=== PATIENT | male | born 1990 | race Caucasian/White ===

== ENCOUNTER 2023-12-25 10:32 | Emergency (ER) | payer OTHER, SELFPAY ==
--- NOTE | ~2023-12-25 | XR_ITS ---
XR foot LT 2V DATE: 12/25/2023 11:47 INDICATION: Medial foot pain. No injury. TECHNIQUE: AP and lateral views COMPARISON: None FINDINGS: There is slight plantar calcaneal enthesopathy. No fracture, dislocation, periosteal reacti on or bone destruction or other significant bony abnormality is detected. IMPRESSION: Slight plantar calcaneal enthesopathy Reviewed, dictated and finalized at location [facility]
--- NOTE | ~2023-12-25 | XR_ITS ---
XR tibia fibula LT 2V DATE: 12/25/2023 11:47 INDICATION: Medial foot pain, lateral leg pain TECHNIQUE: AP and lateral views COMPARISON: None FINDINGS: No fracture or dislocation, periosteal reaction or bone destruction of the tibia or fibula. Normal alignment and preservation of joint spaces at the knee and ankle joints. IMPRESSION: Negative Reviewed, dictated and finalized at location [facility] IMPRESSION: Negative
[2023-12-25 11:02] VITALS: BP 175/102; PULSE 88; RESP 16; TEMP 36.6; O2SAT 99
--- NOTE | 2023-12-25 11:33 | ED.GENADULT ---
HPI - General Adult General Chief complaint: Extremity Injury, Lower Stated complaint: L ANKLE PAIN X3D Time Seen by Provider: 12/25/23 11:13 Source: patient Mode of arrival: ambulatory Limitations: no limitations History of Present Illness HPI narrative: This is a 33-year-old male who presents to the ED with chief complaint of left lower extremity pain after walking 5 miles a couple of days ago. Denies any injury or swelling. He has concern for stress fracture. Reports pain to the left lateral glued area and left lateral heel and canales. Pain radiates superiorly at times. denies numbness, weakness or any further sites of pain. Review of Systems Review of Systems: All systems as dictated in HPI Exam Narrative: GENERAL: Well-appearing, well-nourished, and in no acute distress. HEAD: Normocephalic, atraumatic. EYES: PERRLA and EOMI. ENT: Nares clear, no rhinorrhea or epistaxis. Mucous membranes moist. Oropharynx without tonsillar hypertrophy exudate or other lesions. NECK: Supple. No adenopathy or masses. CHEST: No respiratory distress. Clear to auscultation. No wheezes rales or rhonchi HEART: Regular rate and rhythm. No murmur heard. Normal peripheral pulses. ABDOMEN: Soft, nontender, nondistended, normal active bowel sounds. MSK: Normal range of motion. No edema. No tenderness or swelling throughout the lower extremities. SKIN: Warm, dry, no rash. No bruising. Neurovascularly intact distally. NEURO: Alert and oriented x3. No focal deficits. PSYCH: Normal mood and affect. Course Vital Signs Vital signs: Vital Signs Temperature 97.9 F 12/25/23 11:02 Pulse Rate 88 12/25/23 11:02 Respiratory Rate 16 12/25/23 11:02 Blood Pressure 175/102 H 12/25/23 11:02 Pulse Oximetry 99 12/25/23 11:02 Temperature 98.6 F 12/25/23 12:27 Pulse Rate 81 12/25/23 12:27 Respiratory Rate 18 12/25/23 12:27 Blood Pressure 168/95 H 12/25/23 12:27 Pulse Oximetry 100 12/25/23 12:27 Medical Decision Making [facility] Narrative Medical decision making narrative: This is a 33-year-old male who presents to the ED with chief complaint of left lower extremity pain after walking 5 miles a couple of days ago. He does not normally walk as much. Vitals are normal. He has concern for stress fractures. Overall his symptoms are consistent with tendinitis. X-rays of the tib-fib and left foot were ordered and did not show any acute osseous findings. Pt will be discharged in stable condition. Return precautions given and supportive measures discussed. Pt is understanding and agreeable with plan for discharge and follow-up with PCP. Vital Signs Vital Signs: Vital Signs Temperature 97.9 F 12/25/23 11:02 Pulse Rate 88 12/25/23 11:02 Respiratory Rate 16 12/25/23 11:02 Blood Pressure 175/102 H 12/25/23 11:02 Pulse Oximetry 99 12/25/23 11:02 Temperature 98.6 F 12/25/23 12:27 Pulse Rate 81 12/25/23 12:27 Respiratory Rate 18 12/25/23 12:27 Blood Pressure 168/95 H 12/25/23 12:27 Pulse Oximetry 100 12/25/23 12:27 Discharge Plan Discharge Clinical Impression: Tendinitis Patient Disposition: Home, Self-Care Condition: Stable Instructions: Antibiotic Form Additional Instructions: Your exam and imaging today are reassuring overall. There is probably tendinitis to the ankle and heel as well as the ITB band. Please take Tylenol 500 mg and ibuprofen 800 mg every 6 hours as needed for pain. Use ice and rest the extremity as much as possible. If you have any new or worsening symptoms please return to the ER for further evaluation. Follow-up/Referrals: PHYSICIAN,STORE SALES CONSULTANT [Non-Staff] - Time of Disposition: 12:04
[2023-12-25 12:27] VITALS: BP 168/95; PULSE 81; RESP 18; TEMP 37; O2SAT 100
== END 2023-12-25 12:20 | disposition home or self-care (01) ==
PROVIDERS: Emergency Provider Physician Assistant
DX: M77.9 Enthesopathy, unspecified (principal)
CPT/HCPCS: 73590; 73620; 99284

== ENCOUNTER 2025-07-24 16:36 | Outpatient (CLI) | payer OTHER, SELFPAY ==
--- OUTSIDE RECORDS SUMMARY | 2025-07-24 16:40 | XMS_ITS | Clinical Summary ---
Author Organization [facility] Address [address] [place] [address] Care Team Providers Care Continuous Improvement Director Name Role Phone Horace Stuart MD Primary Care Provi shanel Allergies No known active allergies Medications cetirizine (ZyrTEC) 10 mg tablet Take 10 mg by mouth daily Active Active Problems Problem Noted Date Diagnosed Date BMI 39.0-39.9,adult 02/17/2020 Assessment & Plan (02/17/2020 10:10 AM CDT): BMI Follow-up includes: nutrition counseling, exercise counseling and education provided. Routine medical exam 02/17/2020 Assessment & Plan (02/17/2020 10:38 AM CDT): Health maintenance objectives reviewed in orders placed for any outstanding screening if indicated. Physical exam performed as above. Family history of diabetes mellitus 02/17/2020 Establishing care with new doctor, encounter for 02/17/2020 Medical History Medical History Date Comments Allergic Family History Medical History Relation Name Comments Cancer Father Diabetes Paternal Grandmother Relation Name Status Comments Father Paternal Grandmother Social History Tobacco Use Types Packs/Day Years Used Date Smoking Tobacco: Former Smokeless Tobacco: Never Alcohol Use Standard Drinks/Week Comments Yes 5 (1 standard drink = 0.6 oz pur e alcohol) PHQ-2 Answer Date Recorded PHQ-2 Total Score (If total score is 3 or more points, staff should administer the PHQ-9) 0 02/17/2020 Personal Safety Answer Date Recorded Getting School Help Needed Not on file 02/03 Sex and Gender Information Value Date Recorded Sex Assigned at Not on file Legal Sex Male 12:10 PM CDT Gender Identity Not on file Sexual Orientation Not on file Obstetrics History Last Filed Vital Signs Vital Sign Reading Time Taken Comments Blood Pressure 122/80 02/17/2020 9:51 AM CDT Pulse 82 02/17/2020 9:51 AM CDT Temperature - - Respiratory Rate - - Oxygen Saturation 97% 02/17/2020 9:51 AM CDT Inhaled Oxygen Concentration - - Weight 127 kg (280 lb) 02/17/2020 9:51 AM CDT Height 180.3 cm (5' 11) 02/17/2020 9:51 AM CDT Body Mass Index 39.05 02/17/2020 9:51 AM CDT Plan of Treatment Not on file Insurance [address] [place] [address] [facility] CHO[employer] [address] [place] [address] Care Teams Continuous Improvement Director Relationship Specialty Start Date End Date Horace Stuart MD PCP - General Internal Medicine 02/12/20
--- OUTSIDE RECORDS SUMMARY | 2025-07-24 16:40 | XMS_ITS | Clinical Summary ---
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 Gender Identity Not on file Sexual Orientation Not on file Plan of Treatment Health Maintenance Due Date Last Done Comments Hepatitis C Virus (HCV) Screening 1988 TdaP Immunization 1988 Hepatitis B Immunization (1 of 3 - 19+ 3-dose series) 2007 Human Papillomavirus (HPV) Immunization (1 - 3-dose SCDM series) 2015 SARS-COV-2 Immunization ( season) 2024 04/17/2021, 03/27/2021 Influenza Immunization (#1) 2025 Respiratory Syncytial Virus (RSV) Immunization (Adult) (1 - 1-dose 75+ series) 2063 Meningococcal Immunization (ACWY) Aged Out No longer eligible b ased on patient's age to complete this topic Pneumococcal Immunization Combined Aged Out No longer eligible b ased on patient's age to complete this topic Rotavirus Immunization Aged Out No lo nger eligible based on patient's age to complete this topic
[2025-07-24 17:32] LABS: Hematocrit 44.7 % (42.0-52.0); Hemoglobin 14.9 g/dL (14.0-18.0); Immature Granulocyte Percent A 0.2 % (0-0.5); Lymphocytes Absolute Auto 3.28 K/mm3 (0.9-3.2); Mean Corpuscular HGB Conc 33.3 g/dl (32-36); Mean Corpuscular Hemoglobin 31.3 pg (26-34); Mean Corpuscular Volume 93.9 fl (80-100); Nucleated Red Blood Cells Absolute Auto 0.000 K/mm3 (0.0-0.012); Nucleated Red Blood Cells Perc 0.0 % (0.0-0.2); Platelet Count Result 283 k/mm3 (150-375); Red Blood Count 4.76 M/mm3 (4.6-6.20); White Blood Count 9.2 K/mm3 (4.5-10.0)
[2025-07-24 17:44] LABS: Alanine Aminotransferase 47 U/L (6-50); Albumin Level 4.6 g/dL (3.5-5.1); Alkaline Phosphatase 100 U/L (38-126); Anion Gap 11 mmol/L (4-12); Aspartate Amino Transferase 34 U/L (17-59); Bilirubin,Total 0.4 mg/dL (0.2-1.3); Blood Urea Nitrogen 18 mg/dL (9-20); Calcium 9.4 mg/dL (8.4-10.2); Carbon Dioxide 27 mmol/L (22-30); Chloride 101 mmol/L (98-107); Cholesterol 229 mg/dL (0-200); Estimated Glomerular Filt Rate > 60; Glucose 75 mg/dL (65-110); HDL Direct 35 mg/dL; Potassium 3.8 mmol/L (3.4-5.0); Sodium 139 mmol/L (137-145); Total Protein 8.2 g/dL (6.3-8.2); Triglycerides 343 mg/dL (<150)
[2025-07-24 18:03] LABS: Iron 41 ug/dL (49-181)
[2025-07-24 18:14] LABS: Percent Iron Saturation 13 % (20-50)
[2025-07-24 18:20] LABS: Thyroid Stimulating Hormone 1.220 uIU/mL (0.465-4.680)
[2025-07-24 18:21] LABS: Add Urine Microscopic? YES; Appearance Urine Cloudy (Clear); Free T4 Free Thyroxine 1.31 ng/dL (0.78-2.19); Glucose Urine UA Negative (Negative); Leukocyte Esterase Ur Negative LEU/UL (Negative); Nitrate Urine Negative (Negative); Non Pathogenic Casts 0-2; Specific Grav Ur 1.021 (1.001-1.035)
[2025-07-24 18:22] LABS: Total Triiodothyronine (T3) 1.35 NG/ML (0.82-1.58)
[2025-07-24 18:56] LABS: Vitamin B12 794.0 pg/mL (239-931)
[2025-07-29 10:08] LABS: Dopamine, Pl 31.0 pg/mL (0.0-36.7); Epinephrine, Plasma 13.5 pg/mL (0.0-55.4); Norepinephrine, Pl 237 pg/mL (115-524)
[2025-08-02 02:07] LABS: Free Testosterone (Direct) 8.2 pg/mL (8.7-25.1)
== END 2025-07-24 16:37 | disposition home or self-care (01) ==
LOC: ANHLAB 16:38
PROVIDERS: PCP Family Medicine; Visit Provider Family Medicine
DX: G47.10 Hypersomnia, unspecified (principal); I10 Essential (primary) hypertension; Z00.00 Encounter for general adult medical examination without abnormal findings; E78.2 Mixed hyperlipidemia; R00.0 Tachycardia, unspecified
CPT/HCPCS: 36415; 80053; 80061; 81001; 82384; 82607; 82746; 83540; 83550; 84402; 84403; 84439; 84443; 84480; 85025